=== PATIENT | female | born 1965 | race Caucasian/White ===

== ENCOUNTER → 2016-12-31 | Outpatient (CLI) | payer OTHER ==
[~2016-12-31] MED LIST: BUPIVACAINE MPF 0.25% 10 ML VIAL. ONE; LIDOCAINE 1% PF 30 ML VIAL. ONE; methylPREDNISolone ACETATE 80 MG/ML VIAL. ONE
== END | disposition home or self-care (01) ==
LOC: SURG 12:16
PROVIDERS: ATTEND Anesthesiology Pain Medicine
DX: M46.1 Sacroiliitis, not elsewhere classified (principal); M19.90 Unspecified osteoarthritis, unspecified site; E07.9 Disorder of thyroid, unspecified
CPT/HCPCS: 27096; J1040; J2001; J3490

== ENCOUNTER → 2017-02-11 | Outpatient (CLI) | payer OTHER ==
[~2017-02-11] MED LIST changes: +IOHEXOL 300 MG/ML 50 ML VIAL. ONE; +methylPREDNISolone ACETATE 40 MG/ML VIAL. ONE; -methylPREDNISolone ACETATE 80 MG/ML VIAL. ONE
== END | disposition home or self-care (01) ==
LOC: SURG 09:59
PROVIDERS: ATTEND Anesthesiology Pain Medicine
DX: M46.1 Sacroiliitis, not elsewhere classified (principal); M47.26 Other spondylosis with radiculopathy, lumbar region; E03.9 Hypothyroidism, unspecified; M19.91 Primary osteoarthritis, unspecified site; E07.9 Disorder of thyroid, unspecified; Z90.710 Acquired absence of both cervix and uterus
CPT/HCPCS: 27096; J1030; J2001; J3490; 77002; Q9967

== ENCOUNTER → 2017-05-06 | Outpatient (CLI) | payer OTHER ==
[~2017-05-06] MED LIST changes: -IOHEXOL 300 MG/ML 50 ML VIAL. ONE
== END | disposition home or self-care (01) ==
LOC: SURG 09:49
PROVIDERS: ATTEND Anesthesiology Pain Medicine
DX: M46.1 Sacroiliitis, not elsewhere classified (principal); M19.90 Unspecified osteoarthritis, unspecified site; Z90.710 Acquired absence of both cervix and uterus; Z98.890 Other specified postprocedural states; E03.9 Hypothyroidism, unspecified
CPT/HCPCS: 27096; 99214; J1030; J2001; J3490

== ENCOUNTER → 2017-05-23 | Outpatient (CLI) | payer OTHER ==
--- NOTE | 2017-05-23 16:17 | RAD ---
DATE: 05/23/2017 EXAM: MAMMO GISSEL SCREENING BILATERAL HISTORY: Routine screening COMPARISON: 04/21/2016 This study was interpreted with the benefit of Computerized Aided Detection (CAD). FINDINGS: Breast Density: HETERO The breast parenchyma Is heterogeneouslyy dense, which could reduce sensitivity of mammography. Breast parenchyma level C. Round density identified in the right breast is similar to prior exam IMPRESSION: Benign findings BI-RADS CATEGORY: 2 BENIGN FINDING RECOMMENDED FOLLOW-UP: 12M 12 MONTH FOLLOW-UP PQRS compliance statement: Patient information was entered into a reminder system with a target due date 05/23/2018 for the next mammogram. Mammography is a sensitive method for finding small breast cancers, but it does not detect them all and is not a substitute for careful clinical examination. A negative mammogram does not negate a clinically suspicious finding and should not result in delay in biopsying a clinically suspicious abnormality. "Our facility is accredited by the [employer] Mammography [employer]."
== END | disposition home or self-care (01) ==
LOC: MAMMO 15:31
PROVIDERS: ATTEND Specialist
DX: Z12.31 Encounter for screening mammogram for malignant neoplasm of breast (principal)
CPT/HCPCS: 77063; 77067

== ENCOUNTER → 2017-05-27 | Outpatient (CLI) | payer OTHER ==
[~2017-05-27] MED LIST changes: +0.9 % SODIUM CHLORIDE 10 ML VIAL ONE; -BUPIVACAINE MPF 0.25% 10 ML VIAL. ONE; +IOHEXOL 300 MG/ML 50 ML VIAL. ONE
== END | disposition home or self-care (01) ==
LOC: SURG 14:00
PROVIDERS: ATTEND Anesthesiology Pain Medicine
DX: M54.16 Radiculopathy, lumbar region (principal); Z90.710 Acquired absence of both cervix and uterus; E03.9 Hypothyroidism, unspecified; M19.90 Unspecified osteoarthritis, unspecified site; Z98.890 Other specified postprocedural states
CPT/HCPCS: 62323; J1030; J2001; Q9967

== ENCOUNTER → 2017-08-05 | Outpatient (CLI) | payer OTHER | LOC: SURG 12:34 | PROVIDERS: ATTEND Anesthesiology Pain Medicine | DX: M51.16 Intervertebral disc disorders with radiculopathy, lumbar region (principal); Z72.89 Other problems related to lifestyle; Z87.39 Personal history of other diseases of the musculoskeletal system and connective tissue; Z90.710 Acquired absence of both cervix and uterus; Z86.39 Personal history of other endocrine, nutritional and metabolic disease | CPT/HCPCS: 62323; J1030; J2001; Q9967 ==

== ENCOUNTER → 2018-07-14 | Outpatient (CLI) | payer OTHER ==
--- NOTE | 2018-07-14 14:41 | RAD ---
DATE: 07/14/2018 EXAM: MAMMO GISSEL SCREENING BILATERAL HISTORY: Routine screening COMPARISON: 05/23/2017 This study was interpreted with the benefit of Computerized Aided Detection (CAD). Breast Density: HETERO The breast parenchyma is heterogenously dense, which could reduce sensitivity of mammography. Breast parenchyma level C. FINDINGS: 2-D and 3-D tomosynthesis imaging was performed in CC and MLO projections. No new or enlarging breast densities are seen. Minimal benign type calcification is present. No suspicious microcalcifications have developed. IMPRESSION: There is no mammographic evidence of malignancy in either breast. BI-RADS CATEGORY: 2 BENIGN FINDING(S) RECOMMENDED FOLLOW-UP: 12M 12 MONTH FOLLOW-UP PQRS compliance statement: Patient information was entered into a reminder system with a target due date for the next mammogram. Mammography is a sensitive method for finding small breast cancers, but it does not detect them all and is not a substitute for careful clinical examination. A negative mammogram does not negate a clinically suspicious finding and should not result in delay in biopsying a clinically suspicious abnormality. "Our facility is accredited by the [employer] Mammography [employer]."
== END | disposition home or self-care (01) ==
LOC: MAMMO 13:22
PROVIDERS: ATTEND Family Medicine
DX: Z12.31 Encounter for screening mammogram for malignant neoplasm of breast (principal); R92.8 Other abnormal and inconclusive findings on diagnostic imaging of breast
CPT/HCPCS: 77063; 77067

== ENCOUNTER → 2019-10-11 | Outpatient (CLI) | payer OTHER ==
--- NOTE | 2019-10-11 13:21 | RAD ---
INDICATION: 54 years of age asymptomatic female patient presents for screening mammography. TECHNIQUE: Full field craniocaudal and mediolateral oblique images of both breasts were obtained using digital technique with tomosynthesis and also analyzed with computer-aided detection software. COMPARISON: 07/14/2018, 05/23/2017, 04/21/2016. BREAST COMPOSITION: Category B: There are scattered fibroglandular densities. FINDINGS: At the posterior depth of the lateral left breast there is an asymmetry, approximately 8 cm from the nipple. No definite correlate is seen on the MLO view although may not be included in the [id number]. No suspicious and left breast microcalcification or mass. No suspicious masses, microcalcifications or architectural distortion is present to suggest malignancy in the right breast. The visualized axillae are unremarkable. IMPRESSION: Left breast asymmetry, findings for which additional imaging is advised. RECOMMENDATION: The patient will be contacted to return for additional imaging and a supplemental report will follow. Spot compression cc view of the left breast as well as full field laterally exaggerated CC and ML view is recommended. Ultrasound is also recommended. BIRADS 0: INCOMPLETE - NEED ADDITIONAL IMAGING EVALUATION AND/OR PRIOR MAMMOGRAMS FOR COMPARISON. Electronically signed by: Jak Galindo MD (10/11/2019 1:18 PM) [id number]
== END | disposition home or self-care (01) ==
LOC: MAMMO 08:47
PROVIDERS: ATTEND Family Medicine
DX: Z12.31 Encounter for screening mammogram for malignant neoplasm of breast (principal)
CPT/HCPCS: 77063; 77067

== ENCOUNTER → 2019-10-24 | Outpatient (CLI) | payer OTHER ==
--- NOTE | 2019-10-25 17:18 | RAD ---
DATE: 10/24/2019 1:45 PM EXAM: DIGITAL DIAGNOSTIC LT, BREAST LEFT HISTORY: Screening recall for asymmetry in the lateral left breast. COMPARISON: Mammograms of 07/14/2018, 10/11/2019 and 02/07/2013. TECHNIQUE: Left CC, spot compression CC, spot compression MLO, X CCL, and full-field ML views were obtained with 2-D technique and reviewed with computer-aided detection. Computer-aided detection was utilized in review.Targeted ultrasound of the upper outer quadrant posterior left breast was also performed. FINDINGS: Breast Density: SCATTERED The breast parenchyma shows scattered fibroglandular densities. Breast parenchyma level B The questioned asymmetry changed configuration in a pattern compatible with overlap of fibroglandular tissue. Targeted ultrasound of the upper-outer quadrant left breast revealed no suspicious sonographic findings with a ridge of dense fibroglandular tissue at the 1:00 and 2:00 positions near the edge of the fibroglandular envelope noted. . IMPRESSION: No mammographic evidence of malignancy. BI-RADS CATEGORY: 2 BENIGN FINDING(S) RECOMMENDED FOLLOW-UP: 12M 12 MONTH FOLLOW-UP Annual screening mammography is recommended, unless clinically indicated sooner based on symptoms or change in physical exam. PQRS compliance statement: Patient information was entered into a reminder system with a target due date for the next mammogram. Mammography is a sensitive method for finding small breast cancers, but it does not detect them all and is not a substitute for careful clinical examination. A negative mammogram does not negate a clinically suspicious finding and should not result in delay in biopsying a clinically suspicious abnormality. "Our facility is accredited by the [employer] Mammography [employer]."
== END ==
LOC: MAMMO 13:43
PROVIDERS: ATTEND Family Medicine
DX: R92.2 Inconclusive mammogram (principal)
CPT/HCPCS: 76641; 77065

== ENCOUNTER → 2020-11-13 | Outpatient (CLI) | payer OTHER ==
--- NOTE | 2020-11-14 13:07 | RAD ---
History: Routine [id number] screening mammography PROCEDURE: [Routine 3-D CC and MLO views of both breasts are obtained.] The images were also evalua amy with computer-aided detection and the CAD results were analyzed. Previous: Bilateral screening mammogram from 10/11/2019. FINDINGS: There are scattered fibroglandular densities (density level B).There are no suspicious masses, suspic ious microcalcifications or areas of architectural distortion. IMPRESSION: Negative mammogram. Routine annual screening mammogram in one year advised. BI-RADS Category 1: Negative. A mammogram does not have 100% sensitivity and therefore a negative imaging study should not delay fu rther work up of a suspicious abnormality. "Our facility is accredited by the [employer] Mammography [employer]." Electronically signed by: Radha Santiago MD (11/14/2020 1:05 PM) [email or web address]
== END ==
LOC: MAMMO 12:42
PROVIDERS: ATTEND Family Medicine
DX: Z12.31 Encounter for screening mammogram for malignant neoplasm of breast (principal)
CPT/HCPCS: 77063; 77067